=== PATIENT | female | born 1985 | race Caucasian/White ===

== ENCOUNTER 2018-04-12 17:11 | Outpatient (CLI) | payer MEDICAID ==
[2018-04-12 19:30] LABS: RUPTURE FETAL MEMBRANES NEGATIVE (NEGATIVE)
[2018-04-12 20:13] LABS: ADD UMIC NO; UR ASCORBIC ACID NEGATIVE (NEGATIVE); UR BILIRUBIN (Dip) NEGATIVE (NEGATIVE); UR BLOOD (Dip) NEGATIVE (NEGATIVE); UR CLARITY CLEAR (CLEAR); UR COLOR STRAW (YELLOW); UR GLUCOSE (Dip) NEGATIVE (NEGATIVE); UR KETONES (Dip) NEGATIVE (NEGATIVE); UR LEUKOCYTE ESTERASE (Dip) NEGATIVE Leu/ul (NEGATIVE); UR NITRITE (Dip) NEGATIVE (NEGATIVE); UR SPECIFIC GRAVITY (Dip) 1.004 (1.003-1.030); UR TOTAL PROTEIN (Dip) NEGATIVE (NEGATIVE); UR UROBILINOGEN (Dip) NEGATIVE (NEGATIVE)
[2018-04-12] MEDS: DIPHENHYDRAMINE 50 MG CAP PO (21:46)
== END 2018-04-12 21:47 | disposition home or self-care (01) ==
LOC: OBT 17:11 → L-D 17:12 → OBT 21:47
DX: O26.893 Other specified pregnancy related conditions, third trimester (principal); G47.00 Insomnia, unspecified; R51 Headache; O36.8130 Decreased fetal movements, third trimester, not applicable or unspecified; Z3A.36 36 weeks gestation of pregnancy
CPT/HCPCS: 76818; 81003; 84112; 87086

== ENCOUNTER 2018-05-01 06:26 | Inpatient (IN) | payer MEDICAID ==
[2018-05-01] MEDS ORDERED: METHYLERGONOVINE 0.2 MG INJ IM (11:00)
[2018-05-01] MEDS ORDERED: OXYTOCIN 30 UNITS/LR 500 ML IV ×2 (11:00)
[2018-05-01] MEDS ORDERED: MISOPROSTOL 100 MCG TAB VAG (11:00)
[2018-05-01] MEDS ORDERED: LIDOCAINE 1% (MPF) 30 ML INJ INJ (11:00)
[2018-05-01] MEDS ORDERED: MISOPROSTOL 200 MCG TAB PR (11:00)
[2018-05-01] MEDS ORDERED: CARBOPROST 250 MCG INJ IM (11:00)
[2018-05-01 11:09] LABS: ADD MAN DIFF? NO
[2018-05-01 11:13] LABS: BASOPHILS % 0.3 % (0.0-2.0); EOSINOPHILS # 0.1 10^3/ul (0.0-0.5); EOSINOPHILS % 1.7 % (0.0-7.0); HEMATOCRIT 32.9 % (37.0-47.0); HEMOGLOBIN 10.8 g/dl (12.0-16.0); LYMPHOCYTES # 1.6 10^3/ul (0.8-2.9); LYMPHOCYTES % 23.2 % (15.0-51.0); MEAN CORPUSCULAR HEMOGLOBIN 26.9 pg (29.0-33.0); MEAN CORPUSCULAR HGB CONC 32.8 g/dl (32.0-37.0); MEAN CORPUSCULAR VOLUME 81.8 fl (82.0-101.0); MONOCYTE # 0.5 10^3/ul (0.3-0.9); MONOCYTES % 6.8 % (0.0-11.0); NEUTROPHIL # 4.6 10^3/ul (1.6-7.5); NEUTROPHILS % 67.4 % (39.0-77.0); PLATELET COUNT 228 10^3/UL (140-415); RED BLOOD COUNT 4.02 10^6/ul (4.20-5.40); RED CELL DISTRIBUTION WIDTH 14.8 % (11.5-14.5)
[2018-05-01 11:13] LABS: WHITE BLOOD COUNT 6.9 10^3/ul (4.8-10.8)
[2018-05-01] MEDS: MISOPROSTOL 50 MCG CAPSULE PO ×2 (11:16→22:10)
[2018-05-01] MEDS: LACTATED RINGER'S 1,000 ML IV ×2 (11:16→17:48)
[2018-05-01 11:44] LABS: INR 0.95; PROTIME 12.8 Sec (11.9-14.9)
[2018-05-01 11:45] LABS: PARTIAL THROMBOPLASTIN TIME 27.7 Sec (23.0-35.0)
[2018-05-01 12:06] LABS: HEPATITIS B SURFACE ANTIGEN NEGATIVE (NEGATIVE)
[2018-05-01 20:48] LABS: RAPID PLASMA REAGIN NONREACTIVE (NR)
[2018-05-02] MEDS: LACTATED RINGER'S 1,000 ML IV ×3 (00:26→09:27)
[2018-05-02] MEDS ORDERED: FENTAnyl 2MCG/ML-ROPIV 0.2% 100 ML (00:54)
[2018-05-02] MEDS ORDERED: DIPHENHYDRAMINE 50 MG INJ IV ×3 (01:30→17:00)
[2018-05-02] MEDS ORDERED: ONDANSETRON 4 MG INJ IV ×3 (01:30→17:00)
[2018-05-02] MEDS ORDERED: NALOXONE (0.4 MG/ML) INJ IV ×2 (01:30→17:00)
[2018-05-02] MEDS: MISOPROSTOL 50 MCG CAPSULE PO ×2 (02:35→08:21)
[2018-05-02] MEDS ORDERED: EPHEDrine SULFATE 50 MG/5 ML SYG (07:00)
[2018-05-02] MEDS: FENTAnyl 2MCG/ML-ROPIV 0.2% 100 ML BAG EPI (10:18)
[2018-05-02] MEDS ORDERED: CEFAZOLIN 2 GM/50 ML (PMX) 50 ML IVPB (13:00)
[2018-05-02] MEDS ORDERED: CHLOROPROCAINE 3% (MPF) 20 ML INJ (16:04)
[2018-05-02] MEDS ORDERED: PHENYLephrine (100 MCG/ML) 5ML SYG (16:12)
[2018-05-02] MEDS ORDERED: FENTAnyl 50 MCG/ML VIAL ×2 (16:41→16:46)
[2018-05-02] MEDS ORDERED: HYDROmorphONE 1 MG/5 ML IV SYRINGE IV ×3 (17:00)
[2018-05-02] MEDS ORDERED: HYDROmorphONE 0.5 MG/0.5 ML SYG IV ×2 (17:00)
[2018-05-02] MEDS ORDERED: METOCLOPRAMIDE 10 MG INJ IV (17:00)
[2018-05-02] MEDS ORDERED: FENTAnyl 50 MCG/ML VIAL IV ×2 (17:00)
[2018-05-02] MEDS ORDERED: morphine SULFATE/PF (10 MG/10 ML) INJ (17:00)
[2018-05-02] MEDS: OXYTOCIN 30 UNITS/LR 500 ML IV ×3 (17:54→21:41)
[2018-05-02] MEDS: KETOROLAC 30 MG INJ IV ×3 (17:59→22:15)
[2018-05-02] MEDS: DEXTROSE 5%-LR 1,000 ML IV (19:40)
[2018-05-02] MEDS ORDERED: CARBOPROST 250 MCG INJ IM (20:00)
[2018-05-02] MEDS ORDERED: OXYTOCIN 30 UNITS/LR 500 ML IV (20:00)
[2018-05-02] MEDS ORDERED: MISOPROSTOL 200 MCG TAB PR (20:00)
[2018-05-02] MEDS ORDERED: LANOLIN 7 GM TUBE TOP (20:00)
[2018-05-02] MEDS ORDERED: METHYLERGONOVINE 0.2 MG TAB PO (20:00)
[2018-05-02] MEDS ORDERED: METHYLERGONOVINE 0.2 MG INJ IM (20:00)
[2018-05-02] MEDS: SENNA/DOCUSATE NA (8.6MG/50MG) TAB PO (21:00)
[2018-05-03] MEDS: DEXTROSE 5%-LR 1,000 ML IV ×2 (07:03→11:40)
[2018-05-03 08:09] LABS: ADD MAN DIFF? NO
[2018-05-03 08:17] LABS: BASOPHILS % 0.2 % (0.0-2.0); EOSINOPHILS # 0.1 10^3/ul (0.0-0.5); EOSINOPHILS % 1.4 % (0.0-7.0); HEMATOCRIT 28.6 % (37.0-47.0); HEMOGLOBIN 9.3 g/dl (12.0-16.0); LYMPHOCYTES # 1.3 10^3/ul (0.8-2.9); LYMPHOCYTES % 15.7 % (15.0-51.0); MEAN CORPUSCULAR HEMOGLOBIN 27.1 pg (29.0-33.0); MEAN CORPUSCULAR HGB CONC 32.5 g/dl (32.0-37.0); MEAN CORPUSCULAR VOLUME 83.4 fl (82.0-101.0); MEAN PLATELET VOLUME 10.9 fl (7.4-10.4); MONOCYTE # 0.8 10^3/ul (0.3-0.9); MONOCYTES % 9.6 % (0.0-11.0); NEUTROPHIL # 5.9 10^3/ul (1.6-7.5); NEUTROPHILS % 72.5 % (39.0-77.0); PLATELET COUNT 177 10^3/UL (140-415); RED BLOOD COUNT 3.43 10^6/ul (4.20-5.40); RED CELL DISTRIBUTION WIDTH 14.9 % (11.5-14.5)
[2018-05-03 08:17] LABS: WHITE BLOOD COUNT 8.1 10^3/ul (4.8-10.8)
[2018-05-03] MEDS: SENNA/DOCUSATE NA (8.6MG/50MG) TAB PO ×2 (08:25→20:53)
[2018-05-03] MEDS: KETOROLAC 30 MG INJ IV (10:15)
[2018-05-03] MEDS: HYDROCODONE/APAP (5/325) TAB GTB ×2 (14:00→22:00)
[2018-05-03] MEDS: HYDROCODONE/APAP (5/325) TAB NGT ×2 (17:11→20:54)
[2018-05-03] MEDS: IBUPROFEN 800 MG TAB PO (22:26)
[2018-05-04] MEDS: IBUPROFEN 800 MG TAB PO ×3 (05:50→21:19)
[2018-05-04] MEDS: HYDROCODONE/APAP (5/325) TAB GTB (05:50)
[2018-05-04] MEDS: SENNA/DOCUSATE NA (8.6MG/50MG) TAB PO ×2 (09:16→21:19)
[2018-05-04] MEDS: DIPHTH/TET/ACEL PERTUSS (ADULT) 0.5 ML VIAL IM* (09:17)
[2018-05-04] MEDS: HYDROCODONE/APAP (5/325) TAB NGT (12:24)
[2018-05-04] MEDS: HYDROCODONE/APAP (5/325) TAB PO ×2 (14:00→21:20)
[2018-05-04] MEDS ORDERED: LIDOCAINE 4% CR (14:35)
[2018-05-05] MEDS: IBUPROFEN 800 MG TAB PO (06:18)
[2018-05-05] MEDS: HYDROCODONE/APAP (5/325) TAB PO (06:19)
[2018-05-05] MEDS: MEASLES,MUMPS,RUBELLA VACCINE INJ SC* (09:00)
[2018-05-05] MEDS: DIPHTH/TET/ACEL PERTUSS (ADULT) 0.5 ML VIAL IM* (09:00)
[2018-05-05] MEDS: SENNA/DOCUSATE NA (8.6MG/50MG) TAB PO (10:18)
== END 2018-05-05 14:10 | disposition home or self-care (01) | DRG 785 ==
LOC: OBT 06:26 → L-D 06:26 → PP1 05-02 22:54 → OBT 09:33 → L-D 09:32
PROVIDERS: Obstetrics & Gynecology
PROC: 10D00Z1 Extraction of Products of Conception, Low, Open Approach (ICD-10-PCS; principal; 2018-05-02 16:00)
PROC: 0UL70ZZ Occlusion of Bilateral Fallopian Tubes, Open Approach (ICD-10-PCS; 2018-05-02 16:00)
PROC: 3E033VJ Introduction of Other Hormone into Peripheral Vein, Percutaneous Approach (ICD-10-PCS; 2018-05-02 16:00)
DX: O75.82 Onset (spontaneous) of labor after 37 completed weeks of gestation but before 39 completed weeks gestation, with delivery by (planned) cesarean section (principal); Z3A.39 39 weeks gestation of pregnancy; Z30.2 Encounter for sterilization; Z37.0 Single live birth
CPT/HCPCS: 62319; 76815; 76818; 85025; 85610; 85730; 86592; 86850; 86900; 86901; 87340; 88302; 90715; 99464; J2400

== ENCOUNTER 2018-05-07 16:05 | Inpatient (IN) | payer MEDICAID ==
[2018-05-07 16:45] LABS: ADD MAN DIFF? NO
[2018-05-07] MEDS ORDERED: OXYTOCIN 30 UNITS/LR 500 ML IV (16:48)
[2018-05-07 16:49] LABS: BASOPHILS % 0.2 % (0.0-2.0); EOSINOPHILS # 0.4 10^3/ul (0.0-0.5); EOSINOPHILS % 4.5 % (0.0-7.0); HEMATOCRIT 32.3 % (37.0-47.0); HEMOGLOBIN 10.4 g/dl (12.0-16.0); LYMPHOCYTES # 2.1 10^3/ul (0.8-2.9); LYMPHOCYTES % 25.4 % (15.0-51.0); MEAN CORPUSCULAR HEMOGLOBIN 26.9 pg (29.0-33.0); MEAN CORPUSCULAR HGB CONC 32.2 g/dl (32.0-37.0); MEAN CORPUSCULAR VOLUME 83.7 fl (82.0-101.0); MEAN PLATELET VOLUME 10.2 fl (7.4-10.4); MONOCYTE # 0.5 10^3/ul (0.3-0.9); MONOCYTES % 6.1 % (0.0-11.0); NEUTROPHIL # 5.2 10^3/ul (1.6-7.5); NEUTROPHILS % 63.2 % (39.0-77.0); PLATELET COUNT 288 10^3/UL (140-415); RED BLOOD COUNT 3.86 10^6/ul (4.20-5.40); RED CELL DISTRIBUTION WIDTH 15.2 % (11.5-14.5)
[2018-05-07 16:49] LABS: WHITE BLOOD COUNT 8.2 10^3/ul (4.8-10.8)
[2018-05-07] MEDS: MISOPROSTOL 200 MCG TAB PO (17:00)
[2018-05-07] MEDS ORDERED: ACETAMINOPHEN 325 MG TAB PO ×2 (17:00→18:30)
[2018-05-07] MEDS ORDERED: ONDANSETRON 4 MG INJ IV ×2 (17:00→18:30)
[2018-05-07] MEDS: OXYTOCIN 10 UNIT INJ IVPB ×2 (17:02→17:11)
[2018-05-07 17:07] LABS: ALANINE AMINOTRANSFERASE 38 IU/L (13-69); ALBUMIN 3.3 g/dl (3.3-4.9); ALKALINE PHOSPHATASE 152 IU/L (42-121); ANION GAP 8 (5-13); ASPARTATE AMINO TRANSFERASE 47 IU/L (15-46); BILIRUBIN,INDIRECT 0.3 mg/dl (0-1.1); BILIRUBIN,TOTAL 0.3 mg/dl (0.2-1.3); BLOOD UREA NITROGEN 9 mg/dl (7-20); CALCIUM 8.6 mg/dl (8.4-10.2); CARBON DIOXIDE 24 mmol/L (21-31); CHLORIDE 108 mmol/L (97-110); CREATININE 0.43 mg/dl (0.44-1.00); Estimated GFR > 60 mL/min (>60); GLUCOSE 98 mg/dl (70-220); POTASSIUM 4.2 mmol/L (3.5-5.1); SODIUM 140 mmol/L (135-144); TOTAL PROTEIN 6.3 g/dl (6.1-8.1)
[2018-05-07] MEDS: morphine 4 MG/ML VIAL IV (17:28)
[2018-05-07] MEDS: ONDANSETRON 4 MG INJ IV (17:28)
[2018-05-07] MEDS: SOD CHLORIDE 0.9% 1,000 ML IV (17:38)
[2018-05-07] MEDS: MISOPROSTOL 200 MCG TAB PR (18:30)
[2018-05-08] MEDS: KETOROLAC 30 MG INJ IV ×2 (01:05→10:59)
[2018-05-08] MEDS: MISOPROSTOL 200 MCG TAB PO ×4 (01:40→13:24)
[2018-05-08 05:06] LABS: ADD MAN DIFF? NO; BASOPHILS % 0.3 % (0.0-2.0); EOSINOPHILS # 0.4 10^3/ul (0.0-0.5); EOSINOPHILS % 4.5 % (0.0-7.0); HEMATOCRIT 26.1 % (37.0-47.0); HEMOGLOBIN 8.3 g/dl (12.0-16.0); LYMPHOCYTES # 2.1 10^3/ul (0.8-2.9); LYMPHOCYTES % 24.6 % (15.0-51.0); MEAN CORPUSCULAR HEMOGLOBIN 26.8 pg (29.0-33.0); MEAN CORPUSCULAR HGB CONC 31.8 g/dl (32.0-37.0); MEAN CORPUSCULAR VOLUME 84.2 fl (82.0-101.0); MEAN PLATELET VOLUME 10.4 fl (7.4-10.4); MONOCYTE # 0.6 10^3/ul (0.3-0.9); NEUTROPHIL # 5.4 10^3/ul (1.6-7.5); NEUTROPHILS % 63.1 % (39.0-77.0); PLATELET COUNT 253 10^3/UL (140-415); RED CELL DISTRIBUTION WIDTH 15.2 % (11.5-14.5)
[2018-05-08 05:06] LABS: WHITE BLOOD COUNT 8.6 10^3/ul (4.8-10.8)
[2018-05-08] MEDS: IBUPROFEN 800 MG TAB PO ×3 (08:48→21:10)
[2018-05-08] MEDS: PIPER-TAZO 3.375 GM IV (PMX) 100 ML IVPB ×3 (11:00→21:11)
[2018-05-09] MEDS: PIPER-TAZO 3.375 GM IV (PMX) 100 ML IVPB ×2 (05:38→14:00)
[2018-05-09] MEDS: HYDROCODONE/APAP (5/325) TAB PO (07:29)
[2018-05-09] MEDS: IBUPROFEN 800 MG TAB PO ×4 (09:00→20:17)
[2018-05-09] MEDS: MISOPROSTOL 200 MCG TAB PO (20:16)
[2018-05-09] MEDS: CYANOCOBALAMIN 1000 MCG INJ IM (20:16)
== END 2018-05-09 22:10 | disposition home or self-care (01) | DRG 769 ==
LOC: E/R 16:05 → MS1 18:14
PROC: 0UCC7ZZ Extirpation of Matter from Cervix, Via Natural or Artificial Opening (ICD-10-PCS; principal; 2018-05-08)
DX: O72.2 Delayed and secondary postpartum hemorrhage (principal); D62 Acute posthemorrhagic anemia
CPT/HCPCS: 36415; 76856; 80053; 84702; 85025; 86850; 86900; 86901; 87081; 96361; 96374; 96375; 99285-25